=== PATIENT | female | born 1990 | race Caucasian/White ===

== ENCOUNTER 2017-03-21 22:00 | Emergency (ER) | payer OTHER ==
[~2017-03-21] VITALS: Ht 167.6 cm; Wt 68.0 kg
[2017-03-21 22:02] VITALS: BP 112/59; PULSE 53; RESP 16; TEMP 98.8; O2SAT 100
--- NOTE | 2017-03-21 22:20 | PD ---
HPI . Blood work request Chief Complaint: Abnormal Results Time Seen by Provider: 22:13 Travel History International Travel<30 days: No Contact w/Intl Traveler<30days: No Traveled to known affect area: No History of Present Illness HPI Patient presents stating that she was told to come here by her shotgun shell assembly machine operator for a quantitative hCG. She was seen in the clinic 2 days ago and diagnosed with an ectopic . She states that her quantitative hCG was 2402 days ago. She received a shot of methotrexate. She states that she is having no symptoms as bleeding or pelvic pain. She states that she is supposed to have another beta hCG done in 5 more days. She will be following up with the shotgun shell assembly machine operator. [facility] Past Medical History Medical History: Denies Significant Hx Diminished Hearing: No ?: Past Surgical History Surgical History: No Previous Surgery Social History Alcohol Use: Yes (OCC) Tobacco Use: No Substance Use: No Allergies-Medications (Allergen,Severity, Reaction): Coded Allergies: No Known Allergies (Unverified , 03/21/17) Reported Meds & Prescriptions Reported Meds & Active Scripts Active No Active Prescriptions or Reported Medications Review of Systems Except as stated in HPI: all other systems reviewed are Neg Physical Exam Narrative GENERAL: Awake and alert and in no acute distress. SKIN: Warm and dry. HEAD: Normocephalic/atraumatic. EYES: Pupils are equal. Extraocular movements are intact. NECK: Normal range of motion. CARDIOVASCULAR: Regular rate and rhythm. RESPIRATORY: Nonlabored respirations. MUSCULOSKELETAL: Atraumatic. NEUROLOGICAL: Nonfocal. PSYCHIATRIC: Appropriate mood and affect. Data Data Last Documented VS Vital Signs Date Time Temp Pulse Resp B/P (MAP) Pulse Ox O2 Delivery O2 Flow Rate FiO2 03/21/17 23:03 03/21/17 22:02 98.8 53 16 100 Room Air Orders Orders Beta Hcg (Quant/Titer) (03/21/17 22:04) Ed Discharge Order (03/21/17 22:43) Labs Laboratory Tests Test 03/21/17 22:15 Human Chorionic Gonadotropin, Quant 2584 MIU/ML [facility] Medical Decision Making Medical Screen Exam Complete: Yes Emergency Medical Condition: Yes Differential Diagnosis Differential diagnosis of bleeding in includes but is not limited to physiologic bleeding, spontaneous AB, ectopic , placenta previa Narrative Course Presents requesting a repeat quantitative hCG 2 days status post methotrexate. She has a prescription from her shotgun shell assembly machine operator with today's date. However, our literature indicates that the quantitative hCG should be checked on day 4 and day 7 following methotrexate as the quantitative hCG may actually rise between days 1 and 4 following methotrexate. The patient is asymptomatic. We will do the requested blood tests. We will not act on the data. quant = 2584 Diagnosis Primary Impression: Ectopic Qualified Codes: O00.90 - Unspecified ectopic without intrauterine Patient Instructions: Ectopic (DC), General Instructions Additional Instructions: Follow-up with your shotgun shell assembly machine operator as planned Scripts No Active Prescriptions or Reported Meds Disposition: DISCHARGE HOME Condition: Stable Nataliia Harrison MD Mar 21, 2017 22:19
== END 2017-03-21 23:37 | disposition home or self-care (01) ==
LOC: NEPD 22:00
DX: O00.90 Unspecified ectopic pregnancy without intrauterine pregnancy (principal); Z3A.00 Weeks of gestation of pregnancy not specified
CPT/HCPCS: 84702; 99283

== ENCOUNTER → 2017-03-26 | Day surgery (SDC) | payer OTHER ==
[~2017-03-26] VITALS: Ht 167.6 cm; Wt 72.0 kg
[~2017-03-26] MED LIST: *MEPERIDINE 25 MG INJ VIAL PERIprocedural Use ONLY ONE; *morphine SULFATE 4 MG/ML PERIprocedure ONLY ONE; BUPIVACAINE HCL PF 0.5% 30 ML VIAL ONE; CHLORHEXIDINE GLUCONATE 2 % 1 PACK (2 CLOTHS) TOPICAL PRN; DEXAMETHASONE SOD PHOS 4 MG/ML VIAL IV ONE; DO NOT ADM ANY ANTICOAGULANT DRUGS PRN; KETOROLAC TROMETHAMINE 30 MG/ML (IVP) VIAL IV PUSH ONE; KETOROLAC TROMETHAMINE 30 MG/ML (IVP) VIAL ONE; LACTATED RINGER'S 1000 ML IV PRN; LIDOCAINE HCL 1% PF 5 ML SYRINGE OTHER ONE; METHYLERGONOVINE MALEATE 0.2 MG/ML VIAL ONE; METOPROLOL TARTRATE 25 MG TAB PO PRN; MIDAZOLAM HCL 2 MG/2 ML VIAL ONE; ONDANSETRON HCL 4 MG/2 ML VIAL IV PUSH ONE; OXYTOCIN 10 UNIT/ML AMP ONE; POVIDONE IODINE 5% (ANTISEPSIS KIT) 4 APPLICATIONS EACH NARE PRN; PROPOFOL 200 MG/20 ML AMP IV ONE; ROCURONIUM INJ 50 MG/5 ML SYRINGE IV PUSH ONE; SODIUM CHLORID 0.9% 500 ML IV PRN
--- NOTE | 2017-03-26 08:10 | PD.OP ---
Operative Report Date of Surgery: Mar 26, 2017 Preoperative Diagnosis: (1) , location unknown Postoperative Diagnosis: (1) Ectopic left ectopic Procedure: suction D&C, diagnostic laparoscopy, left salpingectomy w/ ectopic en bloc Surgeon: Jose Luevano Washing Machine Installer(s): none Operation and Findings: Findings: 1. Left isthmic unruptured ectopic 2. Normal ovaries bilaterally, normal right fallopian tube, normal left fallopian tube other than ectopic 3. Abdomen free of adhesions. EBL: 5cc IV fluids: 850 LR Urine: 100cc via [place], clear Abx: none required Specimen: 1. Endometrial curettings 2. Left fallopian tube with ectopic en-bloc Jose Luevano MD Mar 26, 2017 08:10
--- NOTE | 2017-03-26 08:30 | MP ---
cc: ALYSIA EDGAR MD DATE OF SURGERY 03/26/2017 DATE OF 1990 PREOPERATIVE DIAGNOSIS Suspected ectopic . POSTOPERATIVE DIAGNOSIS Confirmed left ectopic . SURGEON Alysia Edgar MD [employer] PARAPROFESSIONAL SURGEON None PROCEDURE 1. Suction, dilation, and sharp curettage 2. Diagnostic laparoscopy, left salpingectomy with removal of ectopic en bloc ESTIMATED BLOOD LOSS 5 cc URINE OUTPUT 300 cc FLUIDS REPLACEMENT 850cc ANTIBIOTICS None required SPECIMEN Endometrial curettings and left fallopian tube with ectopic en bloc to pathology, sent separately. FINDINGS 1. Normal external female genitalia, vagina and cervix. Uterus sounded to 8 cm. Minimal return of endometrial tissue on curettage. 2. Normal right fallopian tube and ovary. Normal uterus. Normal left ovary. 3. Engorged left fallopian tube with isthmic ectopic unruptured. 4. Pelvis free of adhesions. Photo documentation obtained of the above findings DVT PPX: sequential compression devices throughout the case. COMPLICATIONS None DISPOSITION Stable COUNTS Correct times two. TIME OUT DONE Correct INDICATIONS This patient is a 26-year-old G1, P0-0-1-0 who was seen in an outpatient setting for a of unknown location. She had an ultrasound that suggested a left ectopic . She had a beta hCG that did not trend appropriately and a progesterone that was 2.7. She received methotrexate on 03/18 and her day four hCG was 2584 and day seven was 2770. Given the rise, counseled the patient, given the ultrasound findings, that she has failed medical management and recommended surgical management. We discussed D&C, as well as laparoscopy, please see H&P for further details and consent. DESCRIPTION OF THE PROCEDURE The patient taken to the operating room, placed in the dorsolithotomy arms out in [facility] stirps. The abdomen and vagina were prepped and draped in a sterile fashion. A Hair was inserted. A weighted speculum was placed posteriorly and a tenaculum was applied to the anterior lip of the cervix. The cervix was dilated with a 16 Nep[place] and sounded to 8 cm. Suction and curettage with an 8 mm curette tip was performed. No return of products were appreciated. Gentle sharp curettage was performed without any obvious return of products as well. A Quisk uterine manipulator was inserted and attention was turned to the abdomen. Quarter percent Marcaine without epinephrine was used for local anesthesia for all port sites. A 5 mm umbilical incision was made, as well as two left lower quadrant incisions. With direct optical view technique the abdomen was entered with a 5 mm trocar, insufflated. Both the left lower quadrant trocars were inserted under intra-abdominal visualization. A survey was performed then using the [employer] laparoscopic device the left fallopian tube was dessicated and transected along the mesosalpinx up to the cornua, amputated and placed in a 5 mm EndoCatch bag. The specimen was removed intact through the left lower quadrant port site. The abdomen was desufflated and the trocars removed. The skin was closed with 4-0 Monocryl and skin glue overlaying. The Hulka manipulator was removed, as well as the Hair. The patient was transferred to the PACU in stable condition and d/c home. MD PALLAVI Bucio/ANIKA /7:39 AM /7:58 AM [id number]
[2017-03-26 09:39] VITALS: BP 101/59; PULSE 67; RESP 18; TEMP 97.5; O2SAT 100
== END | disposition home or self-care (01) ==
LOC: HSDC 05:09
PROVIDERS: ATTEND Obstetrics & Gynecology
DX: O00.109 Unspecified tubal pregnancy without intrauterine pregnancy (principal)
CPT/HCPCS: 00840; 00940; 58120; 59151; 88305; J1100; J1885; J2175; J2210; J2250; J2270; J2405; J3010; J7120; J2590